=== PATIENT | female | born 1970 | race Caucasian/White ===

== ENCOUNTER → 2016-07-08 | Outpatient (CLI) | payer OTHER | LOC: EMI 10:29 | DX: M54.89 Other dorsalgia (principal); M51.34 Other intervertebral disc degeneration, thoracic region | CPT/HCPCS: 72146 ==

== ENCOUNTER → 2020-06-06 | Outpatient (CLI) | payer OTHER ==
[~2020-06-06] MED LIST: ELIQUIS2.5 MG PO; FISH OIL 1,0001 EACH PO; NEURONTIN 300300 MG PO; PERCOCET 10-321 EACH PO; PREVACID30 MG PO; VITAMIN C 500500 MG PO; VITAMIN D32000 UNIT PO
== END ==
LOC: KOH-I 11:38
DX: M79.672 Pain in left foot (principal); M19.072 Primary osteoarthritis, left ankle and foot; M19.071 Primary osteoarthritis, right ankle and foot; M20.12 Hallux valgus (acquired), left foot
CPT/HCPCS: 73630

== ENCOUNTER → 2020-07-16 | Outpatient (CLI) | payer OTHER | LOC: KOH-I 12:13 | DX: M25.561 Pain in right knee (principal); R22.41 Localized swelling, mass and lump, right lower limb; M17.11 Unilateral primary osteoarthritis, right knee | CPT/HCPCS: 73564; 73590 ==

== ENCOUNTER → 2020-07-17 | Outpatient (CLI) | payer OTHER | LOC: HEART 5 11:07 | DX: M25.561 Pain in right knee (principal); R22.41 Localized swelling, mass and lump, right lower limb ==

== ENCOUNTER → 2020-09-02 | Outpatient (CLI) | payer OTHER | LOC: KOH-I 13:26 | DX: M47.24 Other spondylosis with radiculopathy, thoracic region (principal); M41.9 Scoliosis, unspecified | CPT/HCPCS: 72050; 72070 ==

== ENCOUNTER → 2020-10-15 | Outpatient (CLI) | payer OTHER ==
[~2020-10-15] MED LIST changes: +ASPIRIN325 MG PO; +VITAMIN E PO; +WELLBUTRIN XL300 MG PO; +ZYRTEC10 MG PO
== END ==
LOC: KOH-I 15:14
DX: M79.671 Pain in right foot (principal); M19.071 Primary osteoarthritis, right ankle and foot
CPT/HCPCS: 73630

== ENCOUNTER → 2021-01-03 | Outpatient (CLI) | payer OTHER ==
[~2021-01-03] MED LIST changes: +BODY PO; +IMITREX50 MG PO; +RELAFEN750 MG PO; +VITAMIN D325 MCG PO; +VITAMIN E400 UNI4 PO; +[UNRECOGNIZED DRUG - OTHER] PO
[2021-01-03 11:38] LABS: HEMOGLOBIN 14.2 gm/dl (12.3-15.3); RED BLOOD COUNT 4.71 M/UL (4.00-5.10); WHITE BLOOD COUNT 8.4 K/UL (4.5-11.0)
[2021-01-03 11:56] LABS: BUN/CREATININE RATIO 30 (0-10)
== END ==
LOC: OPSV2 09:58
PROVIDERS: Podiatrist Foot & Ankle Surgery
DX: Z01.812 Encounter for preprocedural laboratory examination (principal); M21.41 Flat foot [pes planus] (acquired), right foot; M25.374 Other instability, right foot
CPT/HCPCS: 36415; 80048; 85027

== ENCOUNTER → 2021-01-10 | Day surgery (SDC) | payer OTHER | END | disposition home or self-care (01) | LOC: OR 08:03 | DX: M76.821 Posterior tibial tendinitis, right leg (principal); M21.41 Flat foot [pes planus] (acquired), right foot; M21.071 Valgus deformity, not elsewhere classified, right ankle; M21.6X9 Other acquired deformities of unspecified foot; S86.111A Strain of other muscle(s) and tendon(s) of posterior muscle group at lower leg level, right leg, initial encounter; X58.XXXA Exposure to other specified factors, initial encounter; M25.374 Other instability, right foot; M19.071 Primary osteoarthritis, right ankle and foot; M21.611 Bunion of right foot; M25.571 Pain in right ankle and joints of right foot; M25.871 Other specified joint disorders, right ankle and foot; M89.9 Disorder of bone, unspecified; K21.9 Gastro-esophageal reflux disease without esophagitis; M79.7 Fibromyalgia; G43.909 Migraine, unspecified, not intractable, without status migrainosus; F32.A Depression, unspecified; Z85.828 Personal history of other malignant neoplasm of skin; Z90.710 Acquired absence of both cervix and uterus; Z88.0 Allergy status to penicillin; Z79.82 Long term (current) use of aspirin; Z79.899 Other long term (current) drug therapy | CPT/HCPCS: 73610; 73650; 76000; C1713; J0171; J1100; J1170; J1885; J2001; J2250; J2405; J2704; J2795; J3010; J3370; J7030; J7040; J7120; Q4133 ==

== ENCOUNTER → 2021-01-21 | Outpatient (CLI) | payer OTHER | LOC: KOH-I 11:23 | DX: M79.671 Pain in right foot (principal) | CPT/HCPCS: 73630 ==

== ENCOUNTER → 2021-02-04 | Outpatient (CLI) | payer OTHER | LOC: KOH-I 15:55 | DX: M79.671 Pain in right foot (principal) | CPT/HCPCS: 73630 ==

== ENCOUNTER → 2021-02-18 | Outpatient (CLI) | payer OTHER | LOC: KOH-I 16:15 | DX: M79.671 Pain in right foot (principal) | CPT/HCPCS: 73630 ==

== ENCOUNTER → 2021-03-11 | Outpatient (CLI) | payer OTHER | LOC: KOH-I 15:51 | DX: M79.671 Pain in right foot (principal); M25.571 Pain in right ankle and joints of right foot; M19.071 Primary osteoarthritis, right ankle and foot | CPT/HCPCS: 73610; 73630 ==

== ENCOUNTER → 2021-04-01 | Outpatient (CLI) | payer OTHER | LOC: KOH-I 15:08 | DX: M25.571 Pain in right ankle and joints of right foot (principal) | CPT/HCPCS: 73610; 73630 ==

== ENCOUNTER → 2021-04-22 | Outpatient (CLI) | payer OTHER | LOC: KOH-I 15:48 | DX: M25.571 Pain in right ankle and joints of right foot (principal); S92.311K Displaced fracture of first metatarsal bone, right foot, subsequent encounter for fracture with nonunion; X58.XXXD Exposure to other specified factors, subsequent encounter | CPT/HCPCS: 73610; 73630 ==

== ENCOUNTER → 2021-09-11 | Outpatient (CLI) | payer OTHER | LOC: KOH-I 13:10 | DX: M79.672 Pain in left foot (principal) | CPT/HCPCS: 73630 ==